=== PATIENT | male | born 1990 | race African-American/Black ===

== ENCOUNTER 2017-04-11 21:33 | Emergency (ER) | payer OTHER ==
[2017-04-11 23:42] LABS: HEMOGLOBIN 14.4 gm/dl (14.0-17.5); RED BLOOD COUNT 5.47 M/UL (4.20-5.50)
[2017-04-12 00:04] LABS: BUN/CREATININE RATIO 24 (0-10)
== END 2017-04-12 03:50 | disposition home or self-care (01) ==
LOC: ER1 21:33
PROVIDERS: Family Medicine
DX: R10.9 Unspecified abdominal pain (principal); R11.2 Nausea with vomiting, unspecified
CPT/HCPCS: 36415; 80053; 81001; 82150; 83690; 85025; 87086; 96361; 96374; 96375; 99284; J2270; J2405; J7050; Q9962

== ENCOUNTER 2021-05-31 14:49 | Emergency (ER) | payer BC ==
[2021-05-31 16:59] LABS: RED BLOOD COUNT 6.48 M/UL (4.20-5.50); WHITE BLOOD COUNT 9.6 K/UL (4.5-11.0)
[2021-05-31 17:22] LABS: BUN/CREATININE RATIO 19 (0-10)
[2021-05-31] MEDS ORDERED: ACID-PEP20 MG PO (20:32)
== END 2021-05-31 20:37 | disposition home or self-care (01) ==
LOC: ER1 14:49
PROVIDERS: Physician Assistant
DX: K21.9 Gastro-esophageal reflux disease without esophagitis (principal); Z90.49 Acquired absence of other specified parts of digestive tract
CPT/HCPCS: 80053; 81001; 82150; 83690; 85025; 99284; Q9967